=== PATIENT | female | born 1970 | race Caucasian/White ===

== ENCOUNTER 2017-11-09 13:45 | Observation (INO) | payer SELFPAY ==
[~2017-11-09 13:45] MED LIST: ISOVUE-370 76%-LOCM 1 ML ONE
[2017-11-09 14:09] LABS: #Basophils 0.1 thou/uL (0.0-0.2); #Eosinphils 0.1 thou/uL (0.0-0.7); #Lymphocytes 3.3 thou/uL (1.20-3.40); #Monocytes 0.6 thou/uL (0.11-0.59); %Basophils 1.3 % (0.0-1.0); %Eosinophils 0.8 % (0.0-10.0); %Lymphocytes 36.5 % (21.0-51.0); %Monocytes 6.5 % (0.0-10.0); %Neutrophils 54.8 % (42.0-75.0); Hemoglobin 15.7 g/dL (12.0-16.0); Mean Corpuscular HGB CONC 35.3 g/dL (32.0-36.0); Mean Corpuscular Hemoglobin 32.5 pg (27.0-31.0); Mean Corpuscular Volume 92.3 fl (81.0-99.0); Mean Platelet Volume 5.7 fL (7.4-10.4); Platelet Count 337 thou/uL (130-400); RBC Distribution Width 12.4 % (11.5-14.5); Red Blood Cell (RBC) Count 4.83 mill/uL (4.20-5.40); White Blood Cell (WBC) Count 9.1 thou/uL (4.8-10.8)
[2017-11-09] MEDS ORDERED: Ketorolac Tromethamine 30 MG/ML VIAL ONE (14:33)
[2017-11-09 14:39] LABS: ALT (SGPT) 12 U/L (8-55); AST (SGOT) 18 U/L (5-34); Albumin 5.1 g/dL (3.5-5.0); Alkaline Phosphatase 90 U/L (40-150); Anion Gap 16 mmol/L (10-20); BUN (Urea Nitrogen) 10 mg/dL (7.0-18.7); Bilirubin, Total 0.5 mg/dL (0.2-1.2); CK (CPK) 61 U/L (29-168); Calc. Creatinine Clearance 0 mL/min (70-130); Calcium 9.7 mg/dL (7.8-10.44); Carbon Dioxide 19 mmol/L (22-29); Chloride 105 mmol/L (98-107); Estimated GFR-MDRD 82; Globulin 3.1 g/dL (2.4-3.5); Glucose 92 mg/dL (70-105); Lipase 36 U/L (8-78); Potassium 4.4 mmol/L (3.5-5.1); Protein, Total 8.2 g/dL (6.0-8.3); Sodium 136 mmol/L (136-145)
[2017-11-09 14:40] LABS: CKMB 0.7 ng/mL (0-6.6); Troponin I Less than 0.010 ng/mL (< 0.028)
--- NOTE | 2017-11-09 14:47 | RAD ---
CHEST 1 VIEW: HISTORY: Chest pain. COMPARISON: Chest radiograph 12/10/16. FINDINGS: Innumerable small calcified granulomas throughout the lungs. Lungs are hyperinflated. No focal airs pace consolidation, pneumothorax, or effusion. No acute osseous abnormality. Cardiac silhouette and mediastinal contours are within normal limits. IMPRESSION: 1. No acute intrathoracic abnormality. 2. Similar appearance of the innumerable small calcified granulomas and lung hyperinflation. POS: C
--- NOTE | 2017-11-09 15:03 | CT ---
CT PULMONARY ANGIOGRMA WITH IV CONTRAST AND 3D POSTPROCESSING: HISTORY: Chest pain, worse with inspiration. FINDINGS: There is contrast opacification of the pulmonary arterial vasculature without filling defect to sugge st pulmonary embolism. No thoracic aortic aneurysmal dissection is seen and no pleural or pericardia l effusions are identified. There are emphysematous changes in the lung vera. Calcified granuloma s are seen in the lung. There is small patchy infiltrate versus atelectatic change in the left lung base. IMPRESSION: 1. No CT evidence of pulmonary embolism. 2. Mild infiltrate versus atelectatic change of the left lung base. POS: [facility]
[2017-11-09] MEDS ORDERED: Acetaminophen 325 MG TAB PO PRN (15:35)
[2017-11-09] MEDS ORDERED: Azithromycin 500 MG VIAL ONE (15:39)
[2017-11-09] MEDS ORDERED: methylPREDNISolone Sod Succ/PF 125 MG/2 ML VIAL ONE (15:39)
[2017-11-09] MEDS ORDERED: traZODone HCl 50 MG TAB PO PRN (15:49)
[2017-11-09] MEDS ORDERED: Nicotine 21 MG PATCH TD SCH (16:00)
[2017-11-09 16:42] VITALS: BMI 16.7
[2017-11-09] MEDS ORDERED: Lidocaine 5% Patch TD SCH (17:00)
[2017-11-09] MEDS: traMADol HCl 50 MG TAB PO PRN (17:02)
[2017-11-09] MEDS: Amitriptyline HCl 25 MG TAB PO SCH (17:03)
[2017-11-09 18:38] LABS: CKMB 0.7 ng/mL (0-6.6); Troponin I Less than 0.010 ng/mL (< 0.028)
[2017-11-09] MEDS: Famotidine/PF 20 mg/2ml Vial SLOW IVP SCH (20:13)
[2017-11-09 21:08] LABS: CKMB 0.5 ng/mL (0-6.6); Troponin I Less than 0.010 ng/mL (< 0.028)
--- NOTE | 2017-11-09 23:12 | HP ---
CHIEF COMPLAINT: Chest pain. HISTORY OF PRESENT ILLNESS: The patient is a very pleasant 46-year-old female with past medical hist ory of COPD, depression, migraine headaches, who presented to the hospital with complaints of chest p ain. The patient stated that about 14 days ago she had significant chest pain. She went to the [facility] in [place], [place], was diagnosed with pleurisy. She was given some steroids, ibuprofen, trama dol, and some antibiotics and was discharged home. The patient states that she has taken all of the medications; however, her chest pain continues to worsen. The patient does state that she did have a history of trauma to her right chest wall in the past. The patient states that she has been having worsening pain around her right chest area. She has got some trouble taking a deep breath. She also has shortness of breath due to the pain that she is having. The patient stated that she came in tod ay because she just could not bear the pain anymore and wanted to get an evaluation. PAST MEDICAL HISTORY: History of anxiety, migraines, also has most likely chronic obstructive pulmon elías disease. PAST SURGICAL HISTORY: She has had a cholecystectomy, hysterectomy, right knee surgery, and some wesley k surgery. ALLERGIES: She states she has got no allergies. HOME MEDICATIONS: The patient states that she takes no home medications. She ran out of her amitrip tyline and nobody has prescribed to her that. She also was supposed to be on metoprolol for her bloo d pressure and migraines and she is not taking that medication either. SOCIAL HISTORY: She used to smoke 2 packs a day; however, now smokes a pack a day. Denies any alcoh ol or drug use. FAMILY HISTORY: She had her father diagnosed of coronary artery disease at the age of 60 and he at the age of 72 with blockage to the LAD. Also patient's mother had COPD. She continued to smoke even while she was on oxygen and of pneumonia. REVIEW OF SYSTEMS: All negative except for the ones mentioned above in the HPI. PHYSICAL EXAMINATION: VITAL SIGNS: She is afebrile 97.8, 18, 93, 128/95, 94% room air. GENERAL: She is awake, alert, oriented x3. She appears very malnourished and very cachectic. HEENT: Normocephalic, atraumatic. NECK: No lymphadenopathy noted. LUNGS: Clear of auscultation. No rhonchi, wheezes noted. CARDIOVASCULAR: S1, S2 present. No murmurs, rubs or gallops. She has got significant pain upon pal pation of her right lateral chest area and also right frontal chest wall area. ABDOMEN: Soft, nontender. Bowel sounds are present x2. No hepatomegaly, splenomegaly noted. EXTREMITIES: Lower extremities, no edema. Pedal pulses are present x2. NEUROLOGIC: She has got no focal deficits. SKIN: Intact. LABORATORY DATA: Are as the following: She has white count of 9.1, hemoglobin 15.7, hematocrit 44.6 , platelets are 337. She has got a sodium of 136, potassium of 4.4, bicarbonate of 19, BUN of 10, cr eatinine of 0.76. Her LFTs are normal. Troponin x1 is negative. She underwent a CT abdomen and pel vis, which indicated no PE; however, she did have mild infiltrative versus atelectatic changes in the left lung base. Calcified granuloma seen in the lung. ASSESSMENT AND PLAN: The patient is a very pleasant 46-year-old female who presents to the hospital with chest pain. 1. Atypical chest pain. This is most likely either due to pleurisy or costochondritis. The patient has reproducible pain upon palpating of her right lateral chest wall area and right frontal chest wa ll area. I do not see any rashes or lesions. I do not believe that she has pneumonia if her chest f indings were noted on the left chest. She does not have a white count. She has some cough with some white phlegm and she has been on antibiotics for about 14 days per when she was discharged from [place], [place]. We will check a procalcitonin level. She was given antibiotics in the ER. We will st art the patient on some steroids. I will do 40 mg of steroids b.i.d. with some tramadol. I will res tart her amitriptyline. The patient states that she did feel better in the past with her amitriptyli ne, especially since this pleurisy is recurrent, she has had this in the past. We will also apply Li doderm patch. We will trend her troponins. 2. Smoking cessation. The patient was educated on smoking cessation. We will put patient on a jabier demetria patch and continue to monitor. 3. Deep venous thrombosis prophylaxis. We will put the patient on subcu heparin. 4. History of depression and anxiety. We will start the patient on her amitriptyline. Also, recomm end we will also do case management consult for patient to follow up with the primary or to get her elp assistance getting in touch with the primary and we will go from there.
[2017-11-09 23:29] LABS: CKMB 0.5 ng/mL (0-6.6); Troponin I Less than 0.010 ng/mL (< 0.028)
[2017-11-10] MEDS: traMADol HCl 50 MG TAB PO PRN ×2 (01:25→07:52)
[2017-11-10] MEDS ORDERED: Lidocaine Patch Removal 1 EACH TOP SCH (05:00)
[2017-11-10 05:01] LABS: #Lymphocytes 1.5 thou/uL (1.20-3.40); #Monocytes 0.2 thou/uL (0.11-0.59); #Neutrophils 5.1 thou/uL (1.40-6.50); %Basophils 0.5 % (0.0-1.0); %Eosinophils 0.2 % (0.0-10.0); %Lymphocytes 22.6 % (21.0-51.0); %Monocytes 2.3 % (0.0-10.0); %Neutrophils 74.4 % (42.0-75.0); Hemoglobin 13.6 g/dL (12.0-16.0); Mean Corpuscular HGB CONC 33.8 g/dL (32.0-36.0); Mean Corpuscular Hemoglobin 31.6 pg (27.0-31.0); Mean Corpuscular Volume 93.4 fl (81.0-99.0); Mean Platelet Volume 5.8 fL (7.4-10.4); Platelet Count 304 thou/uL (130-400); RBC Distribution Width 12.5 % (11.5-14.5); Red Blood Cell (RBC) Count 4.31 mill/uL (4.20-5.40); White Blood Cell (WBC) Count 6.8 thou/uL (4.8-10.8)
[2017-11-10 05:10] LABS: Anion Gap 14 mmol/L (10-20); BUN (Urea Nitrogen) 19 mg/dL (7.0-18.7); Calc. Creatinine Clearance 65 mL/min (70-130); Carbon Dioxide 18 mmol/L (22-29); Chloride 108 mmol/L (98-107); Estimated GFR-MDRD 89; Glucose 138 mg/dL (70-105); Potassium 3.6 mmol/L (3.5-5.1); Sodium 136 mmol/L (136-145)
[2017-11-10 08:02] VITALS: BP 101/57; TEMP 97.7
[2017-11-10] MEDS ORDERED: Enoxaparin Sodium 40 MG/0.4 ML SYRINGE SC SCH (09:00)
[2017-11-10] MEDS: Famotidine/PF 20 mg/2ml Vial SLOW IVP SCH (09:04)
[2017-11-10] MEDS: Amitriptyline HCl 25 MG TAB PO SCH (09:04)
[2017-11-10] MEDS ORDERED: Ketorolac Tromethamine 30 MG/ML VIAL IVP SCH (10:15)
--- NOTE | 2017-11-10 16:14 | DIS ---
DATE OF ADMISSION: 11/09/2017 DATE OF DISCHARGE: 11/10/2017 DISCHARGE DIAGNOSES: Musculoskeletal chest pain and tobacco abuse. HISTORY OF PRESENT ILLNESS/HOSPITAL COURSE: Ms. Vandana Segura is a 46-year-old female with hist ory of COPD, depression, migraine headache, who presented to the hospital complaining of chest pain, which started about 2 weeks ago. She went to the hospital in [place] and was diagnosed with pleuri sy. She was given steroids, ibuprofen, tramadol, and some antibiotics and was discharged home. She took all the medication; however, the pain continued to worsen. She did state that she did have a hi story of trauma to the right chest wall and has been having increased pain in that area and having di fficulty taking deep breaths. Her physical examination was benign. Vital signs were stable. She wa s admitted for atypical chest pain, likely due to costochondritis, improved with medications and Letty dol. She was started on amitriptyline, because she has a history of anxiety and depression and she w as on this in the past, but has not followed up with a mental health professional in several years or even a PCP. She was discharged on amitriptyline and nicotine patches. She was advised to use NSAID s for her chest pain, which had resolved at the time of discharge. DISCHARGE MEDICATIONS: Amitriptyline 50 mg twice a day, nicotine patch 21 mg transdermally daily. PHYSICAL EXAMINATION: She was seen and examined on the day of discharge. VITAL SIGNS: Blood pressure 101/57, oxygen saturation 94% on room air, respiratory rate 12, pulse ra te 84, temperature 97.7 degrees Fahrenheit. GENERAL: Not in acute distress. She is sitting up comfortably in bed and chest pain free. HEENT: Normocephalic, atraumatic, not pale, anicteric. NECK: Supple. No JVD. CARDIOVASCULAR: S1 and S2 only with regular rate and rhythm. No murmurs, rubs, or gallops. RESPIRATORY: Vesicular breath sounds bilaterally. No wheezes, rales, or rhonchi. MUSCULOSKELETAL: No edema. ABDOMEN: Soft, nontender, nondistended. Bowel sounds normoactive. SKIN: Warm, dry, well perfused. No rashes or lesions. NEUROLOGIC: Alert and well oriented to time, place, and person. No focal deficits. PSYCHIATRIC: Normal mood and affect. Denies suicidal or homicidal ideations. LABORATORY DATA: WBC 6.8, hemoglobin 13.3, platelet count 304. Sodium 136, potassium 3.6, chloride 108, carbon dioxide 18, BUN 19, creatinine 0.7. Troponin trended and was less than 0.010, prolactin level was less than 0.02. IMAGING: CTA chest/thorax was negative for pulmonary embolism, but showed mild infiltrate versus ate lectatic change in the left lung base. CONSULTATIONS: None. CONDITION AT DISCHARGE: Stable and markedly improved. PROCEDURES: None. DIET: Heart healthy. CARE GOALS: To follow up with primary care physician within 1 week of discharge. ACTIVITY: To resume as tolerated. Discharge time 65 minutes including chart review and documentation.
[2017-11-11] MEDS ORDERED: Potassium Chloride 20 MEQ TAB PO SCH (08:00)
== END 2017-11-10 14:21 | disposition home or self-care (01) ==
LOC: ERS 13:45 → 2SW 15:20
PROVIDERS: ADMIT Internal Medicine; ATTEND Internal Medicine
DX: R07.89 Other chest pain (principal); G43.909 Migraine, unspecified, not intractable, without status migrainosus; F17.210 Nicotine dependence, cigarettes, uncomplicated; F41.9 Anxiety disorder, unspecified; F32.9 Major depressive disorder, single episode, unspecified; Z79.899 Other long term (current) drug therapy
CPT/HCPCS: 36415; 71045; 71275; 80048; 80053; 82553; 83690; 84145; 84484; 85025; 93005; 94640; 96365; 96372; 96375; 96376; G0378; J0456; J1650; J1885; J2920; J2930; J7620; S0028

== ENCOUNTER 2018-01-30 13:46 | Inpatient (IN) | payer SELFPAY ==
[2018-01-30] MEDS ORDERED: Mag-Al 1200 mg/1200 mg/30 ML UDCUP PO PRN (15:01)
[2018-01-30] MEDS ORDERED: Calcium Carbonate 500 MG ChewTAB PO PRN (15:01)
[2018-01-30] MEDS ORDERED: Bisacodyl 5 MG TAB PO PRN ×2 (15:01)
[2018-01-30] MEDS ORDERED: Diabetic Tussin 200 MG/10 ML UDCUP PO PRN (15:01)
[2018-01-30] MEDS ORDERED: Loratadine 10 MG TAB PO PRN (15:01)
[2018-01-30] MEDS ORDERED: Senokot 8.6 MG TAB PO PRN ×2 (15:01)
[2018-01-30] MEDS ORDERED: Acetaminophen 325 MG TAB PO PRN (15:01)
[2018-01-30] MEDS ORDERED: hydrALAZINE 20 MG/ML VIAL SLOW IVP PRN (15:01)
[2018-01-30] MEDS ORDERED: Ondansetron HCl/PF 4 MG/2 ML Vial IVP PRN (15:01)
[2018-01-30] MEDS ORDERED: cloNIDine 0.1 MG TAB PO PRN (15:01)
[2018-01-30] MEDS ORDERED: Magnesium Sulfate 2 GM/100 ML BAG ONE (15:07)
[2018-01-30] MEDS ORDERED: Morphine 4 MG/ML VIAL ONE (15:07)
[2018-01-30] MEDS ORDERED: Amitriptyline HCl 100 MG TAB PO SCH (15:15)
--- NOTE | 2018-01-30 15:55 | HP ---
DATE OF ADMISSION: 01/30/2018 PRIMARY CARE PHYSICIAN: None. CHIEF COMPLAINT: Worsening shortness of breath and right-sided pain in the ribcage due to incessant coughing. HISTORY OF PRESENTING ILLNESS: Ms. Segura is a 47-year-old female with known history of significant t obacco abuse, anxiety, depression as well as possible COPD who presented to outside emergency room wi th above-mentioned complaint. History is mainly obtained by the patient herself and electronic medic al records have been reviewed. The patient was last admitted to our facility about 3 months ago when she was treated for chest pain which was likely secondary to musculoskeletal causes. At that time, she was started on amitriptyline which has greatly helped her. Today, she presented to [facility] and reported that she has been having worsening s hortness of breath for the last week or so. She reports that she used to live in [place], but just moved home 2 days ago, but has been feeling poorly about a week. She reports that she has been havin g a lot of cough for the last week or so. She denies any recent hospitalization. She denies any rec ent travels. She reports that she used to smoke about 40 cigarettes a day, but is down to 4 cigarett es a day. She denies any sick contacts. She reports that it is very difficult for her to just move around in the house. She denies any exposure to new allergens. She denies any chest discomfort, ort hopnea or PND. She denies any lower extremity swelling, pain or erythema. Upon presentation to the emergency room in the outside ER, she was somewhat hypoxic with oxygen satur ation in high 80s. Twelve lead EKG showed bilateral atrial enlargement. Chest x-ray showed hyperinf lation. She was clinically found to be in acute COPD exacerbation and was treated with IV levofloxac in, 125 mg of IV Solu-Medrol and sodium chloride and was transferred to our facility for further eval uation. In our emergency room, she was also given magnesium sulfate and is currently doing better on nasal ca nnula, saturating in low 90s. She is being admitted to medical floor for acute COPD exacerbation wit h possibly bronchitis. PAST MEDICAL HISTORY: 1. Anxiety and depression. 2. Tobacco abuse. 3. Possibly COPD. 4. Migraine. PAST SURGICAL HISTORY: Cholecystectomy, hysterectomy, right knee surgery and some back surgery. ALLERGIES: No known allergies. HOME MEDICATION: Amitriptyline unknown dose. SOCIAL HISTORY: She smokes 4 cigarettes a day. Denies any drug or alcohol abuse. FAMILY HISTORY: Coronary artery disease in her father who at the age of 72. Mother had COPD an d was a smoker. REVIEW OF SYSTEMS: A 12 point review of systems was done. It is negative except for those mentioned in the history and physical. LABORATORY DATA: Reviewed that were done at [facility]. CBC is unremarkable. Seru m chemistries show bicarbonate of 21, otherwise unremarkable. CK-MB: Troponin: BNP are within norm al limits. IMAGING DATA: Chest x-ray by my review has no evidence to suggest any acute infiltrate or pulmonary edema. Hyperinflation and COPD changes are noticed. Twelve lead EKG by my review shows normal sinus rhythm without any acute ST or T-wave changes. Bilateral atrial enlargement is seen. PHYSICAL EXAMINATION: VITAL SIGNS: Upon presentation, blood pressure 100/64, pulse of 84, respirations 18, saturating 92% on nasal cannula and temperature 97 degrees. GENERAL: She appears cachectic and easily winded with conversation, otherwise no acute distress. Sh e is very talkative. She is holding the right ribcage by her hand because she says it hurts. HEENT: Mucous membranes are slightly dry. No oropharyngeal exudate or erythema. Head is normocepha lic, atraumatic. Pupils are equal, reactive to light and accommodation. Extraocular movement intact . NECK: Supple without any lymphadenopathy, JVD or bruit. CHEST: Evaluation shows some diffuse faint wheezes and rhonchi, but breath sounds are equally heard bilaterally. ABDOMEN: Scaphoid, nontender, nondistended with no hepatosplenomegaly. EXTREMITIES: Free of any cyanosis, clubbing, or edema. NEUROLOGIC: Examination is nonfocal. SKIN: Free of any bruises or rashes. NEUROLOGIC: Examination is nonfocal. PSYCHIATRIC: Normal affect. LYMPHATIC: No lymph nodes palpable. IMPRESSION AND PLAN: 1. Acute hypoxic respiratory failure. This is likely secondary to acute chronic obstructive pulmona ry disease exacerbation with bronchitis. There is no evidence to suggest CHF or ACS at this time. L ow clinical probability of pulmonary embolism as the patient has no risk factors. She will be treate d with IV steroids, IV antibiotics, nebulizers and we will add Mucinex as well. We will start her on long-acting inhaled bronchodilators, namely Dulera for now. She will benefit from starting on inhal ed steroids in outpatient setting, but she reports that she cannot afford these medications. We will request consultation with child welfare caseworker with medication assistance. 2. Severe malnutrition. We will consult dietitian as the patient has exhibited severe cachexia and reports that she has failure to gain weight despite eating a lot. She will be started on high protei n nutritional supplements. We will also check TSH to rule out hyperthyroidism as a cause of weight l oss. 3. Tobacco abuse. We will continue her on nicotine patch while she is here. Counseling was provide d and she was congratulated on her efforts to cut back on her tobacco abuse habit. 4. History of anxiety and depression. We will restart her on amitriptyline as the patient reports s ignificant benefit from that. 5. Musculoskeletal chest pain. We will use p.r.n. pain medications for the right ribcage pain due t o excessive coughing. 6. Deep venous thrombosis and gastrointestinal prophylaxis. 7. Add p.r.n. medication order. DISPOSITION: Ms. Segura is currently being admitted to the hospital for acute hypoxic respiratory walter lure and chronic obstructive pulmonary disease exacerbation with bronchitis. Estimated length of sta y at least is 2-3 midnights. Further management will depend upon her clinical course.
[2018-01-30 18:33] VITALS: BMI 16.0
[2018-01-30] MEDS: Mometasone/Formoterol 120 PUFF INHALER INH SCH (18:43)
[2018-01-30] MEDS: Lorazepam 1 MG TAB PO PRN (19:32)
[2018-01-30] MEDS: traMADol HCl 50 MG TAB PO PRN (19:32)
[2018-01-30] MEDS: Nicotine 14 MG PATCH TD SCH (19:34)
[2018-01-30] MEDS: guaiFENesin ER 600 MG TAB PO SCH (20:36)
[2018-01-30] MEDS: Famotidine 20 MG TAB PO SCH (20:36)
[2018-01-30] MEDS: Benzonatate 100 MG CAP PO PRN (20:36)
[2018-01-30] MEDS ORDERED: Amitriptyline HCl 25 MG TAB PO SCH (21:00)
[2018-01-31] MEDS: traMADol HCl 50 MG TAB PO PRN ×4 (00:18→17:33)
[2018-01-31] MEDS: Milk Of Magnesia 30 ML UDCUP PO PRN (05:07)
[2018-01-31] MEDS: Benzonatate 100 MG CAP PO PRN ×3 (05:10→17:32)
[2018-01-31 05:30] LABS: #Lymphocytes 1.3 thou/uL (1.20-3.40); #Monocytes 0.5 thou/uL (0.11-0.59); #Neutrophils 6.4 thou/uL (1.40-6.50); %Basophils 0.1 % (0.0-1.0); %Lymphocytes 16.1 % (21.0-51.0); %Monocytes 6.1 % (0.0-10.0); %Neutrophils 77.7 % (42.0-75.0); Hemoglobin 11.4 g/dL (12.0-16.0); Mean Corpuscular HGB CONC 33.5 g/dL (32.0-36.0); Mean Corpuscular Volume 92.6 fL (78.0-98.0); Mean Platelet Volume 6.2 fL (7.4-10.4); Platelet Count 272 thou/uL (130-400); RBC Distribution Width 12.6 % (11.5-14.5); Red Blood Cell (RBC) Count 3.68 mill/uL (4.20-5.40); White Blood Cell (WBC) Count 8.3 thou/uL (4.8-10.8)
[2018-01-31 05:35] LABS: Anion Gap 11 mmol/L (10-20); BUN (Urea Nitrogen) 16 mg/dL (7.0-18.7); Calc. Creatinine Clearance 69 mL/min (70-130); Calcium 8.7 mg/dL (7.8-10.44); Carbon Dioxide 22 mmol/L (22-29); Chloride 107 mmol/L (98-107); Estimated GFR-MDRD Greater than 90; Glucose 132 mg/dL (70-105); Sodium 136 mmol/L (136-145)
[2018-01-31] MEDS: Mometasone/Formoterol 120 PUFF INHALER INH SCH ×2 (07:14→19:21)
[2018-01-31] MEDS ORDERED: Metoprolol Tartrate 50 MG TAB PO SCH (09:00)
[2018-01-31 09:14] LABS: Free T4 (Free Thyroxine) 0.98 ng/dL (0.70-1.48)
[2018-01-31] MEDS: Lorazepam 1 MG TAB PO PRN (09:20)
[2018-01-31] MEDS: guaiFENesin ER 600 MG TAB PO SCH ×2 (09:20→21:13)
[2018-01-31] MEDS: Famotidine 20 MG TAB PO SCH ×2 (09:21→21:13)
[2018-01-31] MEDS: Enoxaparin Sodium 40 MG/0.4 ML SYRINGE SC SCH (09:21)
[2018-01-31] MEDS: Amitriptyline HCl 100 MG TAB PO SCH ×2 (09:21→21:12)
[2018-01-31] MEDS: Metoprolol Tartrate 50 MG TAB PO SCH ×2 (09:28→21:13)
--- NOTE | 2018-01-31 12:10 | PDOC.PN ---
- Subjective Encounter Start Date: 01/31/18 Encounter Start Time: 12:09 Subjective: breathing better.c/o not getting enough sleep -: r rib cage pain better but still there - Objective MAR Reviewed: Yes Vital Signs & Weight: Vital Signs (12 hours) Temp Pulse Resp BP Pulse Ox 01/31/18 11:38 97.8 F 71 16 118/73 96 01/31/18 07:31 97.6 F 81 18 105/71 92 L 01/31/18 07:18 101 H 20 91 L 01/31/18 07:14 71 18 91 L 01/31/18 04:42 97.7 F 70 16 91/61 91 L Weight Weight 88 lb I&O: 01/30/18 01/31/18 02/01/18 06:59 06:59 06:59 Intake Total 420 Balance 420 Result Diagrams: 01/31/18 05:04 01/31/18 05:04 Additional Labs: Laboratory Tests 01/31/18 05:04 Free T4 0.98 Free T3 1.38 L Phys Exam - Physical Examination Constitutional: NAD thin ,cachectic HEENT: PERRLA, moist MMs, sclera anicteric, TM's clear, oral pharynx no lesions , 2+ tonsils Neck: no nodes, no JVD, supple, full ROM Respiratory: no wheezing, no rales, no rhonchi Cardiovascular: RRR, no significant murmur Gastrointestinal: soft, non-tender, no distention, positive bowel sounds Musculoskeletal: no edema, pulses present Neurological: non-focal, normal sensation, moves all 4 limbs Psychiatric: normal affect, A&O x 3 Skin: no rash Dx/Plan (1) Acute respiratory failure with hypoxia Code(s): J96.01 - ACUTE RESPIRATORY FAILURE WITH HYPOXIA Status: Acute (2) Acute bronchitis with COPD Code(s): J44.0 - CHRONIC OBSTRUCTIVE PULMON DISEASE W ACUTE LOWER RESP INFCT; J20.9 - ACUTE BRONCHITIS, UNSPECIFIED Status: Acute (3) Hyperthyroidism Code(s): E05.90 - THYROTOXICOSIS, UNSP WITHOUT THYROTOXIC CRISIS OR STORM Status: Chronic (4) Severe malnutrition Code(s): E43 - UNSPECIFIED SEVERE PROTEIN-CALORIE MALNUTRITION Status: Chronic (5) Tobacco abuse Code(s): Z72.0 - TOBACCO USE Status: Chronic (6) Anxiety Code(s): F41.9 - ANXIETY DISORDER, UNSPECIFIED Status: Chronic - Plan continue antibiotics, PT/OT, out of bed/ambulate, DVT proph w/SCDs cont nebs, IV steroids,Dulera,o2 prn.empiric ABx -: check Thyroid US. likley autoimmune Vs adenoma. -: start on Rx w OP f/u w methimazole. -: dietitian consulted for increased protein diets. -: encouraged for tobacco abstinence & med complinace * . Review of Systems - Review of Systems Constitutional: negative: fever, chills, sweats, weakness, malaise, other Respiratory: Shortness of Breath, SOB with Excertion. negative: Cough, Dry, Hemoptysis, Pleuritic Pain, Sputum, Wheezing Cardiovascular: negative: chest pain, palpitations, orthopnea, paroxysmal nocturnal dyspnea, edema, light headedness, other Gastrointestinal: negative: Nausea, Vomiting, Abdominal Pain, Diarrhea, Constipation, Melena, Hematochezia, Other Genitourinary: negative: Dysuria, Frequency, Incontinence, Hematuria, Retention , Other Musculoskeletal: negative: Neck Pain, Shoulder Pain, Arm Pain, Back Pain, Hand Pain, Leg Pain, Foot Pain, Other Neurological: negative: Weakness, Numbness, Incoordination, Change in Speech, Confusion, Seizures, Other - Medications/Allergies Allergies/Adverse Reactions: Allergies Allergy/AdvReac Type Severity Reaction Status Date / Time No Known Allergies Allergy Verified 11/09/17 19:16 Medications: Current Medications Acetaminophen (Tylenol) 650 mg PO Q4H PRN PRN Reason: Headache/Fever or Pain Al Hydroxide/Mg Hydroxide (Maalox) 30 ml PO Q6H PRN PRN Reason: Heartburn or Indigestion Albuterol/Ipratropium (Duoneb) 3 ml NEB [id number] PRN PRN Reason: SOB &/or Wheezing Albuterol/Ipratropium (Duoneb) 3 ml NEB [id number] PRN PRN Reason: SOB &/or Wheezing Last Admin: 01/31/18 07:18 Dose: 3 ml Amitriptyline HCl (Elavil) 100 mg PO BID MARTA Last Admin: 01/31/18 09:21 Dose: 100 mg Benzonatate (Tessalon) 100 mg PO Q4H PRN PRN Reason: Cough Last Admin: 01/31/18 09:20 Dose: 100 mg Bisacodyl (Dulcolax) 10 mg PO DAILYPRN PRN PRN Reason: Constipation Calcium Carbonate (Tums) 1,000 mg PO Q4H PRN PRN Reason: Heartburn or Indigestion Clonidine (Catapres) 0.1 mg PO Q4H PRN PRN Reason: Systolic BP > 160 Enoxaparin Sodium (Lovenox) 40 mg SC 0900 [facility] Last Admin: 01/31/18 09:21 Dose: 40 mg Famotidine (Pepcid) 20 mg PO BID [facility] Last Admin: 01/31/18 09:21 Dose: 20 mg Guaifenesin (Robitussin Sf) 200 mg PO Q4H PRN PRN Reason: Cough Guaifenesin (Mucinex) 600 mg PO Q12HR [facility] Last Admin: 01/31/18 09:20 Dose: 600 mg Hydralazine HCl (Apresoline) 10 mg SLOW IVP Q4H PRN PRN Reason: Systolic BP > 170 Levofloxacin (Levaquin) 500 mg PO 0600 [facility] Last Admin: 01/31/18 05:05 Dose: 500 mg Loratadine (Claritin) 10 mg PO DAILYPRN PRN PRN Reason: Sinus Symptoms Lorazepam (Ativan) 1 mg PO Q4H PRN PRN Reason: Anxiety/Agitation Last Admin: 01/31/18 09:20 Dose: 1 mg Magnesium Hydroxide (Milk Of Magnesium) 30 ml PO DAILYPRN PRN PRN Reason: Constipation Last Admin: 01/31/18 05:07 Dose: 30 ml Methylprednisolone Sodium Succinate (Solu-Medrol) 40 mg IVP Q6HR [facility] Last Admin: 01/31/18 05:05 Dose: 40 mg Metoprolol Tartrate (Lopressor) 50 mg PO BID [facility] Last Admin: 01/31/18 09:28 Dose: 50 mg Mometasone Furoate/Formoterol Fumar (Dulera 200 Mcg/5 Mcg Inhaler) 2 puff INH BID-RT [facility] Last Admin: 01/31/18 07:14 Dose: 2 puff Nicotine (Nicoderm Patch) 14 mg TD Q24HR [facility] Last Admin: 01/30/18 19:34 Dose: 14 mg Ondansetron HCl (Zofran) 4 mg IVP Q6H PRN PRN Reason: Nausea/Vomiting Senna (Senokot) 2 tab PO HSPRN PRN PRN Reason: Constipation Sodium Chloride (Flush - Normal Saline) 10 ml IVF PRN PRN PRN Reason: Saline Flush Last Admin: 01/31/18 05:05 Dose: 10 ml Tramadol HCl (Ultram) 50 mg PO Q4H PRN PRN Reason: Moderate Pain (4-6) Last Admin: 01/31/18 09:20 Dose: 50 mg
--- NOTE | 2018-01-31 13:52 | ULT ---
THYROID ULTRASOUND: DATE: 01/31/18. COMPARISON: None. HISTORY: Hyperthyroidism. TECHNIQUE: Multiplanar, ortega scale, sonographic imaging of the thyroid gland obtained. FINDINGS: Thyroid isthmus measures 3 mm in AP dimension, within normal limits. The right lobe measures 1.3 x 1.5 x 4.6 cm. The left lobe measures 1.2 x 1.1 x 4.1 cm. No discrete thyroid nodule seen on either side. IMPRESSION: Unremarkable thyroid ultrasound. POS: [facility]
[2018-01-31] MEDS: Nicotine 14 MG PATCH TD SCH (14:01)
[2018-01-31] MEDS: Methimazole 5 MG TAB PO SCH (21:13)
[2018-02-01] MEDS: Lorazepam 1 MG TAB PO PRN ×3 (00:30→21:06)
[2018-02-01] MEDS: traMADol HCl 50 MG TAB PO PRN ×4 (00:31→21:07)
[2018-02-01] MEDS: Mometasone/Formoterol 120 PUFF INHALER INH SCH ×2 (06:45→19:22)
[2018-02-01] MEDS: Famotidine 20 MG TAB PO SCH ×2 (08:46→21:06)
[2018-02-01] MEDS: Benzonatate 100 MG CAP PO PRN ×2 (08:46→17:19)
[2018-02-01] MEDS: guaiFENesin ER 600 MG TAB PO SCH ×2 (08:46→21:06)
[2018-02-01] MEDS: Metoprolol Tartrate 50 MG TAB PO SCH ×2 (08:47→21:06)
[2018-02-01] MEDS: Methimazole 5 MG TAB PO SCH ×2 (08:47→21:06)
[2018-02-01] MEDS: Amitriptyline HCl 100 MG TAB PO SCH ×2 (08:48→21:05)
[2018-02-01] MEDS: Enoxaparin Sodium 40 MG/0.4 ML SYRINGE SC SCH (08:49)
[2018-02-01] MEDS: Milk Of Magnesia 30 ML UDCUP PO PRN (11:34)
--- NOTE | 2018-02-01 16:59 | PDOC.PN ---
- Subjective Encounter Start Date: 02/01/18 Encounter Start Time: 16:58 Subjective: feels much better. bretahing easier - Objective MAR Reviewed: Yes Vital Signs & Weight: Vital Signs (12 hours) Temp Pulse Pulse Resp BP BP Pulse Ox 02/01/18 10:55 73 107/69 02/01/18 08:00 98.2 F 58 L 16 97 02/01/18 07:14 98.2 F 58 L 16 115/71 97 Pulse Ox 02/01/18 10:55 92 L 02/01/18 08:00 02/01/18 07:14 Weight Admit Weight 88 lb Weight 88 lb I&O: 01/31/18 02/01/18 02/02/18 06:59 06:59 06:59 Intake Total 420 1085 Balance 420 1085 Result Diagrams: 01/31/18 05:04 01/31/18 05:04 Radiology Reviewed by me: Yes (Thyroid US- no nodules) Phys Exam - Physical Examination Constitutional: NAD HEENT: PERRLA, moist MMs, sclera anicteric, oral pharynx no lesions Neck: no nodes, no JVD, supple, full ROM Respiratory: no wheezing, no rales, no rhonchi, clear to auscultation bilateral Cardiovascular: RRR, no significant murmur, no rub Gastrointestinal: soft, non-tender, no distention, positive bowel sounds Musculoskeletal: no edema, pulses present Neurological: non-focal, normal sensation, moves all 4 limbs Psychiatric: normal affect, A&O x 3 Skin: no rash Dx/Plan (1) Acute respiratory failure with hypoxia Code(s): J96.01 - ACUTE RESPIRATORY FAILURE WITH HYPOXIA Status: Acute (2) Acute bronchitis with COPD Code(s): J44.0 - CHRONIC OBSTRUCTIVE PULMON DISEASE W ACUTE LOWER RESP INFCT; J20.9 - ACUTE BRONCHITIS, UNSPECIFIED Status: Acute (3) Hyperthyroidism Code(s): E05.90 - THYROTOXICOSIS, UNSP WITHOUT THYROTOXIC CRISIS OR STORM Status: Chronic (4) Severe malnutrition Code(s): E43 - UNSPECIFIED SEVERE PROTEIN-CALORIE MALNUTRITION Status: Chronic (5) Tobacco abuse Code(s): Z72.0 - TOBACCO USE Status: Chronic (6) Anxiety Code(s): F41.9 - ANXIETY DISORDER, UNSPECIFIED Status: Chronic - Plan continue antibiotics, PT/OT, out of bed/ambulate, DVT proph w/SCDs still c/o R sided Chest pain.breathing easier -: cont methimazole w OP CBC and TSH in 6 weeks.pt updated -: cont nebs,O2.taper steroids. -: Home in next 24-48 hrs * . Review of Systems - Review of Systems Constitutional: negative: fever, chills, sweats, weakness, malaise, other Respiratory: Cough, SOB with Excertion. negative: Dry, Shortness of Breath, Hemoptysis, Pleuritic Pain, Sputum, Wheezing Cardiovascular: negative: chest pain, palpitations, orthopnea, paroxysmal nocturnal dyspnea, edema, light headedness, other Gastrointestinal: negative: Nausea, Vomiting, Abdominal Pain, Diarrhea, Constipation, Melena, Hematochezia, Other Genitourinary: negative: Dysuria, Frequency, Incontinence, Hematuria, Retention , Other Musculoskeletal: negative: Neck Pain, Shoulder Pain, Arm Pain, Back Pain, Hand Pain, Leg Pain, Foot Pain, Other Neurological: negative: Weakness, Numbness, Incoordination, Change in Speech, Confusion, Seizures, Other - Medications/Allergies Allergies/Adverse Reactions: Allergies Allergy/AdvReac Type Severity Reaction Status Date / Time No Known Allergies Allergy Verified 11/09/17 19:16 Medications: Current Medications Acetaminophen (Tylenol) 650 mg PO Q4H PRN PRN Reason: Headache/Fever or Pain Al Hydroxide/Mg Hydroxide (Maalox) 30 ml PO Q6H PRN PRN Reason: Heartburn or Indigestion Albuterol/Ipratropium (Duoneb) 3 ml NEB [id number] PRN PRN Reason: SOB &/or Wheezing Albuterol/Ipratropium (Duoneb) 3 ml NEB [id number] PRN PRN Reason: SOB &/or Wheezing Last Admin: 01/31/18 07:18 Dose: 3 ml Amitriptyline HCl (Elavil) 100 mg PO BID MARTA Last Admin: 02/01/18 08:48 Dose: 100 mg Benzonatate (Tessalon) 100 mg PO Q4H PRN PRN Reason: Cough Last Admin: 02/01/18 08:46 Dose: 100 mg Bisacodyl (Dulcolax) 10 mg PO DAILYPRN PRN PRN Reason: Constipation Calcium Carbonate (Tums) 1,000 mg PO Q4H PRN PRN Reason: Heartburn or Indigestion Clonidine (Catapres) 0.1 mg PO Q4H PRN PRN Reason: Systolic BP > 160 Enoxaparin Sodium (Lovenox) 40 mg SC 0900 [facility] Last Admin: 02/01/18 08:49 Dose: 40 mg Famotidine (Pepcid) 20 mg PO BID [facility] Last Admin: 02/01/18 08:46 Dose: 20 mg Guaifenesin (Robitussin Sf) 200 mg PO Q4H PRN PRN Reason: Cough Guaifenesin (Mucinex) 600 mg PO Q12HR [facility] Last Admin: 02/01/18 08:46 Dose: 600 mg Hydralazine HCl (Apresoline) 10 mg SLOW IVP Q4H PRN PRN Reason: Systolic BP > 170 Levofloxacin (Levaquin) 500 mg PO 0600 [facility] Last Admin: 02/01/18 05:43 Dose: 500 mg Loratadine (Claritin) 10 mg PO DAILYPRN PRN PRN Reason: Sinus Symptoms Lorazepam (Ativan) 1 mg PO Q4H PRN PRN Reason: Anxiety/Agitation Last Admin: 02/01/18 11:35 Dose: 1 mg Magnesium Hydroxide (Milk Of Magnesium) 30 ml PO DAILYPRN PRN PRN Reason: Constipation Last Admin: 02/01/18 11:34 Dose: 30 ml Methimazole () 5 mg PO BID [facility] Last Admin: 02/01/18 08:47 Dose: 5 mg Methylprednisolone Sodium Succinate (Solu-Medrol) 40 mg IVP Q6HR [facility] Last Admin: 02/01/18 11:35 Dose: 40 mg Metoprolol Tartrate (Lopressor) 50 mg PO BID [facility] Last Admin: 02/01/18 08:47 Dose: 50 mg Mometasone Furoate/Formoterol Fumar (Dulera 200 Mcg/5 Mcg Inhaler) 2 puff INH BID-RT [facility] Last Admin: 02/01/18 06:45 Dose: 2 puff Nicotine (Nicoderm Patch) 14 mg TD Q24HR [facility] Last Admin: 01/31/18 14:01 Dose: 14 mg Ondansetron HCl (Zofran) 4 mg IVP Q6H PRN PRN Reason: Nausea/Vomiting Senna (Senokot) 2 tab PO HSPRN PRN PRN Reason: Constipation Sodium Chloride (Flush - Normal Saline) 10 ml IVF PRN PRN PRN Reason: Saline Flush Last Admin: 02/01/18 08:49 Dose: 10 ml Tramadol HCl (Ultram) 50 mg PO Q4H PRN PRN Reason: Moderate Pain (4-6) Last Admin: 02/01/18 08:46 Dose: 50 mg
[2018-02-01] MEDS ORDERED: Ibuprofen 200 MG TAB PO PRN (17:00)
[2018-02-01] MEDS: Nicotine 14 MG PATCH TD SCH (17:20)
[2018-02-02 04:42] LABS: Anion Gap 11 mmol/L (10-20); BUN (Urea Nitrogen) 21 mg/dL (7.0-18.7); Calc. Creatinine Clearance 63 mL/min (70-130); Carbon Dioxide 29 mmol/L (22-29); Chloride 102 mmol/L (98-107); Estimated GFR-MDRD Greater than 90; Glucose 97 mg/dL (70-105); Potassium 4.5 mmol/L (3.5-5.1); Sodium 137 mmol/L (136-145)
[2018-02-02] MEDS: Mometasone/Formoterol 120 PUFF INHALER INH SCH ×2 (07:00→19:21)
[2018-02-02] MEDS: Methimazole 5 MG TAB PO SCH ×2 (08:50→20:40)
[2018-02-02] MEDS: guaiFENesin ER 600 MG TAB PO SCH ×2 (08:50→20:39)
[2018-02-02] MEDS: Famotidine 20 MG TAB PO SCH ×2 (08:50→20:39)
[2018-02-02] MEDS: Metoprolol Tartrate 50 MG TAB PO SCH ×2 (08:50→20:40)
[2018-02-02] MEDS: Amitriptyline HCl 100 MG TAB PO SCH ×2 (08:50→20:39)
[2018-02-02] MEDS: Lorazepam 1 MG TAB PO PRN ×2 (08:52→14:32)
[2018-02-02] MEDS: traMADol HCl 50 MG TAB PO PRN ×2 (08:52→14:32)
[2018-02-02] MEDS: Enoxaparin Sodium 40 MG/0.4 ML SYRINGE SC SCH (10:58)
--- NOTE | 2018-02-02 11:18 | PDOC.PN ---
- Subjective Encounter Start Date: 02/02/18 Encounter Start Time: 11:15 Subjective: min sob, cough - Objective MAR Reviewed: Yes Vital Signs & Weight: Weight Admit Weight 88 lb Weight 88 lb I&O: 02/01/18 02/02/18 02/03/18 06:59 06:59 06:59 Intake Total 1085 415 Balance 1085 415 Result Diagrams: 01/31/18 05:04 02/02/18 03:24 Phys Exam - Physical Examination Neck: no JVD Respiratory: clear to auscultation bilateral Cardiovascular: RRR, no significant murmur Gastrointestinal: soft, positive bowel sounds Musculoskeletal: no edema Dx/Plan (1) Acute bronchitis with COPD Code(s): J44.0 - CHRONIC OBSTRUCTIVE PULMON DISEASE W ACUTE LOWER RESP INFCT; J20.9 - ACUTE BRONCHITIS, UNSPECIFIED Status: Acute (2) Acute respiratory failure with hypoxia Code(s): J96.01 - ACUTE RESPIRATORY FAILURE WITH HYPOXIA Status: Acute (3) Anxiety Code(s): F41.9 - ANXIETY DISORDER, UNSPECIFIED Status: Chronic (4) Tobacco abuse Code(s): Z72.0 - TOBACCO USE Status: Chronic - Plan cont nebs, antibx, tapering iv steroids * .
[2018-02-02] MEDS: Nicotine 14 MG PATCH TD SCH (14:24)
[2018-02-03] MEDS: traMADol HCl 50 MG TAB PO PRN (00:19)
[2018-02-03] MEDS: Lorazepam 1 MG TAB PO PRN (00:19)
[2018-02-03] MEDS: Benzonatate 100 MG CAP PO PRN (00:19)
[2018-02-03] MEDS: Mometasone/Formoterol 120 PUFF INHALER INH SCH ×2 (07:24→19:11)
[2018-02-03] MEDS: Famotidine 20 MG TAB PO SCH ×2 (08:04→20:52)
[2018-02-03] MEDS: Methimazole 5 MG TAB PO SCH ×2 (08:04→20:53)
[2018-02-03] MEDS: Enoxaparin Sodium 40 MG/0.4 ML SYRINGE SC SCH (08:04)
[2018-02-03] MEDS: guaiFENesin ER 600 MG TAB PO SCH ×2 (08:04→20:52)
[2018-02-03] MEDS: Amitriptyline HCl 100 MG TAB PO SCH ×2 (08:04→20:52)
[2018-02-03] MEDS: Metoprolol Tartrate 50 MG TAB PO SCH ×2 (08:04→20:52)
--- NOTE | 2018-02-03 10:46 | PDOC.PN ---
- Subjective Encounter Start Date: 02/03/18 Encounter Start Time: 10:45 Subjective: some episodic sob - Objective MAR Reviewed: Yes Vital Signs & Weight: Vital Signs (12 hours) Temp Pulse Resp BP Pulse Ox 02/03/18 07:44 98.1 F 66 16 119/73 97 02/03/18 07:25 93 L 02/03/18 07:24 82 16 93 L Weight Admit Weight 88 lb Weight 88 lb I&O: 02/02/18 02/03/18 02/04/18 06:59 06:59 06:59 Intake Total 415 376 Balance 415 376 Result Diagrams: 01/31/18 05:04 02/02/18 03:24 Phys Exam - Physical Examination Neck: no JVD Respiratory: clear to auscultation bilateral Cardiovascular: RRR, no significant murmur Gastrointestinal: soft, positive bowel sounds Musculoskeletal: no edema Dx/Plan (1) Acute bronchitis with COPD Code(s): J44.0 - CHRONIC OBSTRUCTIVE PULMON DISEASE W ACUTE LOWER RESP INFCT; J20.9 - ACUTE BRONCHITIS, UNSPECIFIED Status: Acute (2) Acute respiratory failure with hypoxia Code(s): J96.01 - ACUTE RESPIRATORY FAILURE WITH HYPOXIA Status: Acute (3) Anxiety Code(s): F41.9 - ANXIETY DISORDER, UNSPECIFIED Status: Chronic (4) Tobacco abuse Code(s): Z72.0 - TOBACCO USE Status: Chronic - Plan tapering meds, DC in am * .
[2018-02-03] MEDS: Nicotine 14 MG PATCH TD SCH (14:21)
[2018-02-03 21:06] VITALS: TEMP 97.8
[2018-02-04] MEDS: Mometasone/Formoterol 120 PUFF INHALER INH SCH (07:12)
[2018-02-04] MEDS: Famotidine 20 MG TAB PO SCH (08:17)
[2018-02-04] MEDS: traMADol HCl 50 MG TAB PO PRN ×2 (08:18→12:04)
[2018-02-04] MEDS: guaiFENesin ER 600 MG TAB PO SCH (08:18)
[2018-02-04] MEDS: Metoprolol Tartrate 50 MG TAB PO SCH (08:18)
[2018-02-04] MEDS: Lorazepam 1 MG TAB PO PRN ×2 (08:18→12:05)
[2018-02-04] MEDS: Enoxaparin Sodium 40 MG/0.4 ML SYRINGE SC SCH (08:19)
[2018-02-04] MEDS: Nicotine 14 MG PATCH TD SCH (08:28)
[2018-02-04 08:41] VITALS: BP 131/79
--- NOTE | 2018-02-04 10:23 | DIS ---
TRANSFER OF CARE NOTE PRIMARY CARE PHYSICIAN: [facility]. DATE OF ADMISSION: 01/30/2018 DATE OF DISCHARGE: 02/04/2018 DISPOSITION: Discharged home. FINAL DIAGNOSES: 1. Acute respiratory failure with hypoxia. 2. Chronic obstructive pulmonary disease with acute lower respiratory infection. 3. Tobacco abuse. 4. Anxiety disorder. DISCHARGE MEDICATIONS: Amitriptyline 100 mg 1 b.i.d., DuoNeb 3 mL nebulizer q.6 hours p.r.n., Dulera 200/5 two puffs b.i.d., Medrol Dosepak start 02/05/2018. Lorazepam 1 mg p.o. b.i.d. p.r.n. CODE STATUS: FULL. PENDING AT THE TIME OF DISCHARGE: Nothing. DIET: As tolerated. HOSPITAL COURSE: The patient admitted with worsening shortness of breath, cough. Chest x-ray reveal ed hyperinflation. Chemistries were unremarkable. Breath sounds were diminished with wheezes. She was placed in the hospital on aggressive therapy including nebulizers, Dulera, antibiotics, etc. Her initial laboratory; CBC showed a normal white count 8.3, hemoglobin 11.4, platelet count 272,000. B asic metabolic profile was normal. She had a free T4 of 0.98, free T3 low at 1.38. TSH low at 0.28. Thyroid studies were abnormal, do not indicate hyperthyroid state, however, the patient improved on her treatment. She is now doing well and being discharged. CONSULTATIONS: None. PROCEDURES: None. Lungs clear x2 days, walking in the [place] without oxygen on without discomfort. Prescriptions have be en written. A thyroid ultrasound was done which was unremarkable. Her thyroid functions bear repeat ing in the future; however, with a modestly low TSH and low T3 and a normal T4, I suspect no hyperthy roid state. She has been advised to find a PCP and be seen in 1 week.
[2018-02-04] MEDS: Methimazole 5 MG TAB PO SCH (12:04)
[2018-02-04] MEDS: Amitriptyline HCl 100 MG TAB PO SCH (12:05)
== END 2018-02-04 16:12 | disposition home or self-care (01) | DRG 189 ==
LOC: ERS 13:46 → EEVIPCON 17:13 → T4-B 17:13
PROVIDERS: ADMIT Internal Medicine; ATTEND Internal Medicine
PROC: 3E0234Z Introduction of Serum, Toxoid and Vaccine into Muscle, Percutaneous Approach (ICD-10-PCS; principal; 2018-01-31)
DX: J96.01 Acute respiratory failure with hypoxia (principal); E43 Unspecified severe protein-calorie malnutrition; J44.0 Chronic obstructive pulmonary disease with (acute) lower respiratory infection; Z68.1 Body mass index [BMI] 19.9 or less, adult; J44.1 Chronic obstructive pulmonary disease with (acute) exacerbation; F17.210 Nicotine dependence, cigarettes, uncomplicated; F32.9 Major depressive disorder, single episode, unspecified; F41.9 Anxiety disorder, unspecified; E05.90 Thyrotoxicosis, unspecified without thyrotoxic crisis or storm; Z23 Encounter for immunization
CPT/HCPCS: 36415; 76536; 80048; 84439; 84443; 84481; 85025; 90471; 90732; 94640; 96365; 96375; 99406; A4216; G0009; G8987-GO-CH; G8988-GO-CH; G8989-GO-CH; J1650; J2270; J2920; J3475

== ENCOUNTER 2018-03-12 10:57 | Emergency (ER) | payer OTHER, SELFPAY ==
[2018-03-12] MEDS ORDERED: methylPREDNISolone Sod Succ/PF 125 MG/2 ML VIAL ONE (11:29)
[2018-03-12 11:32] LABS: #Eosinphils 0.1 thou/uL (0.0-0.7); #Lymphocytes 1.8 thou/uL (1.20-3.40); #Monocytes 0.5 thou/uL (0.11-0.59); %Basophils 0.8 % (0.0-1.0); %Monocytes 8.5 % (0.0-10.0); %Neutrophils 61.8 % (42.0-75.0); Hemoglobin 14.2 g/dL (12.0-16.0); Mean Corpuscular HGB CONC 32.9 g/dL (32.0-36.0); Mean Corpuscular Hemoglobin 31.3 pg (27.0-31.0); Mean Corpuscular Volume 95.1 fL (78.0-98.0); Mean Platelet Volume 5.9 fL (7.4-10.4); Platelet Count 287 thou/uL (130-400); Red Blood Cell (RBC) Count 4.55 mill/uL (4.20-5.40); White Blood Cell (WBC) Count 6.4 thou/uL (4.8-10.8)
[2018-03-12 11:57] LABS: ALT (SGPT) 22 U/L (8-55); AST (SGOT) 17 U/L (5-34); Albumin 4.4 g/dL (3.5-5.0); Alkaline Phosphatase 82 U/L (40-150); Anion Gap 10 mmol/L (10-20); BUN (Urea Nitrogen) 12 mg/dL (7.0-18.7); Bilirubin, Total 0.4 mg/dL (0.2-1.2); Calc. Creatinine Clearance 0 mL/min (70-130); Calcium 9.5 mg/dL (7.8-10.44); Carbon Dioxide 26 mmol/L (22-29); Chloride 103 mmol/L (98-107); Estimated GFR-MDRD 81; Globulin 3.4 g/dL (2.4-3.5); Glucose 84 mg/dL (70-105); Lipase 33 U/L (8-78); Potassium 3.9 mmol/L (3.5-5.1); Protein, Total 7.8 g/dL (6.0-8.3); Sodium 135 mmol/L (136-145)
[2018-03-12 11:59] LABS: CKMB 0.6 ng/mL (0-6.6); Troponin I Less than 0.010 ng/mL (< 0.028)
--- NOTE | 2018-03-12 12:09 | RAD ---
CHEST X-RAY PA AND LATERAL: 03/12/2018 HISTORY: Cough. History of COPD. Shortness of breath. COMPARISON: 01/30/2018 FINDINGS: The cardiac silhouette and pulmonary vasculature are within normal limits. Numerous calcified granul omata are again seen throughout the lungs. The lungs are otherwise clear. There has been no signifi cant interval change from the prior exam. The lungs do remain hyperinflated. IMPRESSION: Stable chest without evidence of an acute cardiopulmonary process. POS: [facility]
[2018-03-12] MEDS ORDERED: Ketorolac Tromethamine 30 MG/ML VIAL ONE (12:56)
--- NOTE | 2018-03-14 08:32 | EKG ---
Test Reason : Blood Pressure : / mmHG Vent. Rate : 097 BPM Atrial Rate : 097 BPM P-R Int : 150 ms QRS Dur : 094 ms QT Int : 362 ms P-R-T Axes : 088 082 075 degrees QTc Int : 459 ms Normal sinus rhythm Possible Left atrial enlargement Borderline ECG Confirmed by TARSHA TAY ([id number] on 03/14/2018 8:32:13 AM Referred By: Confirmed By:TARSHA TAY
== END 2018-03-12 13:00 | disposition home or self-care (01) ==
LOC: ERS 10:57
DX: J44.9 Chronic obstructive pulmonary disease, unspecified (principal); R07.89 Other chest pain; G43.909 Migraine, unspecified, not intractable, without status migrainosus; I10 Essential (primary) hypertension; F41.9 Anxiety disorder, unspecified; F32.9 Major depressive disorder, single episode, unspecified; F17.210 Nicotine dependence, cigarettes, uncomplicated; Z79.899 Other long term (current) drug therapy
CPT/HCPCS: 71046; 80053; 82553; 83690; 83880; 84484; 85025; 85379; 93005; 94640; 94760; 96361; 96374; 96375; J1885; J2930; J7620

== ENCOUNTER 2018-03-22 11:33 | Emergency (ER) | payer SELFPAY ==
[2018-03-22] MEDS ORDERED: Ondansetron PF 4 MG/2 ML Vial ONE (12:30)
[2018-03-22 12:35] LABS: #Basophils 0.1 thou/uL (0.0-0.2); #Eosinphils 0.1 thou/uL (0.0-0.7); #Lymphocytes 2.2 thou/uL (1.20-3.40); #Monocytes 0.6 thou/uL (0.11-0.59); #Neutrophils 2.8 thou/uL (1.40-6.50); %Basophils 1.2 % (0.0-1.0); %Eosinophils 1.6 % (0.0-10.0); %Lymphocytes 38.6 % (21.0-51.0); %Monocytes 9.8 % (0.0-10.0); %Neutrophils 48.7 % (42.0-75.0); Hemoglobin 13.4 g/dL (12.0-16.0); Mean Corpuscular HGB CONC 32.6 g/dL (32.0-36.0); Mean Corpuscular Hemoglobin 30.8 pg (27.0-31.0); Mean Corpuscular Volume 94.5 fL (78.0-98.0); Mean Platelet Volume 6.4 fL (7.4-10.4); Platelet Count 322 thou/uL (130-400); RBC Distribution Width 14.7 % (11.5-14.5); Red Blood Cell (RBC) Count 4.34 mill/uL (4.20-5.40); White Blood Cell (WBC) Count 5.6 thou/uL (4.8-10.8)
[2018-03-22] MEDS ORDERED: Ketorolac Tromethamine 30 MG/ML VIAL ONE (12:55)
[2018-03-22] MEDS ORDERED: diphenhydrAMINE 50 MG/ML VIAL ONE (12:59)
[2018-03-22 13:02] LABS: ALT (SGPT) 22 U/L (8-55); AST (SGOT) 26 U/L (5-34); Alkaline Phosphatase 82 U/L (40-150); Anion Gap 14 mmol/L (10-20); BUN (Urea Nitrogen) 14 mg/dL (7.0-18.7); Bilirubin, Total 0.4 mg/dL (0.2-1.2); Calc. Creatinine Clearance 0 mL/min (70-130); Calcium 9.2 mg/dL (7.8-10.44); Carbon Dioxide 22 mmol/L (22-29); Chloride 104 mmol/L (98-107); Estimated GFR-MDRD Greater than 90; Globulin 3.4 g/dL (2.4-3.5); Glucose 79 mg/dL (70-105); Potassium 4.1 mmol/L (3.5-5.1); Protein, Total 7.4 g/dL (6.0-8.3); Sodium 136 mmol/L (136-145)
== END 2018-03-22 13:41 | disposition home or self-care (01) ==
LOC: ERS 11:33
DX: S39.012A Strain of muscle, fascia and tendon of lower back, initial encounter (principal); A08.4 Viral intestinal infection, unspecified; I10 Essential (primary) hypertension; G43.909 Migraine, unspecified, not intractable, without status migrainosus; J44.9 Chronic obstructive pulmonary disease, unspecified; F17.210 Nicotine dependence, cigarettes, uncomplicated; F32.9 Major depressive disorder, single episode, unspecified; X50.1XXA Overexertion from prolonged static or awkward postures, initial encounter
CPT/HCPCS: 80053; 85025; 96361; 96374; 96375; J1200; J1885; J2405

== ENCOUNTER 2018-04-02 23:46 | Emergency (ER) | payer SELFPAY ==
[2018-04-03] MEDS ORDERED: Ketorolac Tromethamine 30 MG/ML VIAL ONE (00:35)
[2018-04-03] MEDS ORDERED: Acetaminophen 500 MG TAB ONE (00:35)
--- NOTE | 2018-04-03 07:36 | RAD ---
RIGHT ANKLE 3 VIEWS: Date: 04/02/18 HISTORY: Injury. Slammed in a truck door. COMPARISON: None. FINDINGS: No acute displaced fracture or malalignment. Soft tissues are unremarkable. IMPRESSION: No acute displaced fracture or malalignment. POS: [facility]
== END 2018-04-03 00:55 | disposition home or self-care (01) ==
LOC: ERS 23:46
DX: S90.01XA Contusion of right ankle, initial encounter (principal); I10 Essential (primary) hypertension; G43.909 Migraine, unspecified, not intractable, without status migrainosus; J44.9 Chronic obstructive pulmonary disease, unspecified; F41.9 Anxiety disorder, unspecified; F17.210 Nicotine dependence, cigarettes, uncomplicated; F32.9 Major depressive disorder, single episode, unspecified; Z79.899 Other long term (current) drug therapy; W22.8XXA Striking against or struck by other objects, initial encounter
CPT/HCPCS: 96372; J1885

== ENCOUNTER 2018-05-17 12:54 | Emergency (ER) | payer SELFPAY ==
[2018-05-17 13:27] LABS: #Eosinphils 0.1 thou/uL (0.0-0.7); #Lymphocytes 2.2 thou/uL (1.20-3.40); #Monocytes 0.7 thou/uL (0.11-0.59); #Neutrophils 5.9 thou/uL (1.40-6.50); %Basophils 0.3 % (0.0-1.0); %Lymphocytes 24.3 % (21.0-51.0); %Monocytes 8.3 % (0.0-10.0); %Neutrophils 66.2 % (42.0-75.0); Hemoglobin 14.3 g/dL (12.0-16.0); Mean Corpuscular Hemoglobin 30.5 pg (27.0-31.0); Mean Corpuscular Volume 95.3 fL (78.0-98.0); Mean Platelet Volume 6.5 fL (7.4-10.4); Platelet Count 315 thou/uL (130-400); RBC Distribution Width 12.4 % (11.5-14.5); Red Blood Cell (RBC) Count 4.67 mill/uL (4.20-5.40); White Blood Cell (WBC) Count 8.9 thou/uL (4.8-10.8)
--- NOTE | 2018-05-17 13:31 | RAD ---
FRONTAL RADIOGRAPH CHEST: Date: 05/17/18 COMPARISON: 11/09/17. HISTORY: Cough. FINDINGS: Numerous small calcified nodules are noted bilaterally, evidence of prior granulomatous disease. The heart and mediastinal contours appear grossly unremarkable. No pneumothorax, pleural fluid, focal consolidation, or alveolar edema. IMPRESSION: No acute findings. POS: [facility]
[2018-05-17 13:40] LABS: ALT (SGPT) 8 U/L (8-55); AST (SGOT) 14 U/L (5-34); Albumin 4.5 g/dL (3.5-5.0); Alkaline Phosphatase 95 U/L (40-150); Anion Gap 14 mmol/L (10-20); BUN (Urea Nitrogen) 11 mg/dL (7.0-18.7); Bilirubin, Total 0.3 mg/dL (0.2-1.2); Calc. Creatinine Clearance 0 mL/min (70-130); Calcium 9.7 mg/dL (7.8-10.44); Carbon Dioxide 22 mmol/L (22-29); Chloride 107 mmol/L (98-107); Estimated GFR-MDRD Greater than 90; Globulin 3.5 g/dL (2.4-3.5); Glucose 79 mg/dL (70-105); Potassium 3.1 mmol/L (3.5-5.1); Sodium 140 mmol/L (136-145)
[2018-05-17] MEDS ORDERED: Azithromycin 250 MG TAB ONE (13:40)
[2018-05-17] MEDS ORDERED: predniSONE 20 MG TAB ONE (13:40)
== END 2018-05-17 15:40 | disposition home or self-care (01) ==
LOC: ERS 12:54
DX: J44.1 Chronic obstructive pulmonary disease with (acute) exacerbation (principal); J20.9 Acute bronchitis, unspecified; J44.0 Chronic obstructive pulmonary disease with (acute) lower respiratory infection; F32.9 Major depressive disorder, single episode, unspecified; F41.9 Anxiety disorder, unspecified; I10 Essential (primary) hypertension; F17.210 Nicotine dependence, cigarettes, uncomplicated; Z79.899 Other long term (current) drug therapy; G43.909 Migraine, unspecified, not intractable, without status migrainosus
CPT/HCPCS: 36415; 71045; 80053; 85025; 94640; J7506; J7620

== ENCOUNTER 2018-08-04 13:09 | Emergency (ER) | payer OTHER, SELFPAY ==
[2018-08-04] MEDS ORDERED: Acetaminophen/Codeine 30-300mg Tablet ONE (14:30)
--- NOTE | 2018-08-04 14:32 | RAD ---
PORTABLE CHEST: History: Cough. Comparison: 05-17-18 FINDINGS: Heart size is within normal limits. There is evidence of old granulomatous disease. Lungs appear hype rexpanded. Overall appearance of the chest is stable. IMPRESSION: Stable chest. POS: [facility]
[2018-08-04 14:50] LABS: #Eosinphils 0.1 thou/uL (0.0-0.7); #Lymphocytes 1.3 thou/uL (1.20-3.40); #Monocytes 0.6 thou/uL (0.11-0.59); #Neutrophils 6.3 thou/uL (1.40-6.50); %Basophils 0.5 % (0.0-1.0); %Eosinophils 0.9 % (0.0-10.0); %Lymphocytes 15.6 % (21.0-51.0); %Monocytes 7.6 % (0.0-10.0); %Neutrophils 75.4 % (42.0-75.0); Hemoglobin 13.3 g/dL (12.0-16.0); Mean Corpuscular Hemoglobin 30.8 pg (27.0-31.0); Mean Corpuscular Volume 93.4 fL (78.0-98.0); Mean Platelet Volume 6.7 fL (7.4-10.4); Platelet Count 212 thou/uL (130-400); RBC Distribution Width 12.8 % (11.5-14.5); Red Blood Cell (RBC) Count 4.32 mill/uL (4.20-5.40); White Blood Cell (WBC) Count 8.3 thou/uL (4.8-10.8)
[2018-08-04 15:05] LABS: ALT (SGPT) 12 U/L (8-55); AST (SGOT) 13 U/L (5-34); Albumin 4.1 g/dL (3.5-5.0); Alkaline Phosphatase 89 U/L (40-150); Anion Gap 12 mmol/L (10-20); BUN (Urea Nitrogen) 7 mg/dL (7.0-18.7); Bilirubin, Total 0.3 mg/dL (0.2-1.2); Calc. Creatinine Clearance 0 mL/min (70-130); Calcium 8.9 mg/dL (7.8-10.44); Carbon Dioxide 24 mmol/L (22-29); Chloride 103 mmol/L (98-107); Estimated GFR-MDRD Greater than 90; Globulin 2.7 g/dL (2.4-3.5); Glucose 82 mg/dL (70-105); Protein, Total 6.8 g/dL (6.0-8.3); Sodium 136 mmol/L (136-145)
[2018-08-04] MEDS ORDERED: Potassium Chloride 20 MEQ TAB ONE (15:24)
--- NOTE | 2018-08-07 12:03 | EKG ---
Test Reason : Blood Pressure : / mmHG Vent. Rate : 089 BPM Atrial Rate : 089 BPM P-R Int : 124 ms QRS Dur : 082 ms QT Int : 386 ms P-R-T Axes : 080 081 079 degrees QTc Int : 469 ms Normal sinus rhythm Biatrial enlargement Abnormal ECG Confirmed by TRICIA KRUEGER DO ([id number]), order editor MELISSA GUPTA ([id number] on 08/07/2018 12:03:13 PM Referred By: Confirmed By:TRICIA KRUEGER DO
== END 2018-08-04 15:30 | disposition home or self-care (01) ==
LOC: ERS 13:09
DX: R07.81 Pleurodynia (principal); R05 Cough; I10 Essential (primary) hypertension; G43.909 Migraine, unspecified, not intractable, without status migrainosus; J44.9 Chronic obstructive pulmonary disease, unspecified; F41.9 Anxiety disorder, unspecified; F32.9 Major depressive disorder, single episode, unspecified
CPT/HCPCS: 36415; 71045; 80053; 84484; 85025; 93005

== ENCOUNTER 2018-10-06 10:29 | Emergency (ER) | payer SELFPAY ==
--- NOTE | 2018-10-06 10:52 | RAD ---
EXAM: 2 views of the left forearm HISTORY: Forearm pain after hitting on ice machine one week ago COMPARISON: None FINDINGS: There is no evidence of acute fracture or dislocation. No soft tissue swelling is seen. No degenerative changes are seen in the wrist or elbow. IMPRESSION: No evidence of acute osseous abnormality.
--- NOTE | 2018-10-06 11:30 | RAD ---
LEFT WRIST 3 VIEWS: Date: 10/06/18 INDICATION: Left wrist pain after hitting the left wrist on an ice machine 1 week ago. FINDINGS: No acute fracture is evident. There is a chronic ununited ulnar styloid process fracture. Small calci fications seen within the hyaline cartilage of the lunotriquetral joint. Carpal alignment is normal. There is soft tissue swelling surrounding the left wrist. IMPRESSION: 1. No visible acute fracture. 2. Chronic ununited ulnar styloid process fracture. 3. Small focus of chondrocalcinosis within the lunotriquetral joint. POS: [facility]
[2018-10-06] MEDS ORDERED: Ketorolac Tromethamine 30 MG/ML VIAL ONE (11:43)
== END 2018-10-06 12:27 | disposition home or self-care (01) ==
LOC: ERS 10:29
DX: M25.532 Pain in left wrist (principal); I10 Essential (primary) hypertension; G43.909 Migraine, unspecified, not intractable, without status migrainosus; J44.9 Chronic obstructive pulmonary disease, unspecified; F41.9 Anxiety disorder, unspecified; F17.210 Nicotine dependence, cigarettes, uncomplicated; F32.9 Major depressive disorder, single episode, unspecified; Z79.51 Long term (current) use of inhaled steroids; Z79.891 Long term (current) use of opiate analgesic; Z79.899 Other long term (current) drug therapy
CPT/HCPCS: 96372; J1885